=== PATIENT | female | born 1990 ===

== ENCOUNTER 2020-11-29 15:45 | Emergency (ER) | payer MEDICARE ==
[~2020-11-29] VITALS: Ht 170.2 cm; Wt 142.9 kg
[2020-11-29] MEDS ORDERED: TRAMADOL HCL 50 MG TAB PO ONE (16:15)
[2020-11-29 18:54] VITALS: BP 115/75
== END 2020-11-29 19:06 | disposition home or self-care (01) ==
LOC: ER 16:04
DX: S02.40CA Maxillary fracture, right side, initial encounter for closed fracture (principal); M79.661 Pain in right lower leg; Y04.8XXA Assault by other bodily force, initial encounter; Y92.008 Other place in unspecified non-institutional (private) residence as the place of occurrence of the external cause; M41.9 Scoliosis, unspecified
CPT/HCPCS: 70450; 70486; 99283